=== PATIENT | female | born 1990 | race Two or more races ===

== ENCOUNTER 2020-02-10 11:22 | Emergency (ER) | payer MEDICAID, OTHER ==
[~2020-02-10] VITALS: Ht 149.9 cm; Wt 45.0 kg
[2020-02-10 11:28] VITALS: BP 123/78
== END 2020-02-10 12:13 | disposition home or self-care (01) ==
LOC: ER 11:22
DX: N93.8 Other specified abnormal uterine and vaginal bleeding (principal); F12.10 Cannabis abuse, uncomplicated
CPT/HCPCS: 81025; 99282